=== PATIENT | female | born 1955 ===

== ENCOUNTER → 2023-02-17 | Outpatient (CLI) | payer OTHER ==
[~2023-02-17] MED LIST: GLIMEPIRIDE4 MG; LIPITOR20 MG PO; SYNJARDY 12.5-1 EACH PO; SYNTHROID50 MCG PO; ZESTRIL10 M1 PO
== END | disposition home or self-care (01) ==
LOC: LAB 06:00 → ADM 10:15 → EDSTATUS 02-23 10:15 → CIR.AMB 02-23 10:15
PROVIDERS: ATTEND Surgery
DX: I10 Essential (primary) hypertension (principal)

== ENCOUNTER 2023-06-01 05:59 | Day surgery (SDC) | payer OTHER ==
[~2023-06-01] VITALS: Ht 154.9 cm; Wt 45.4 kg
[~2023-06-01 05:59] MED LIST changes: +OMEGA 3 1,0001 EACH PO
[2023-06-01] MEDS ORDERED: METRONIDAZOLE/SODIUM CHLORIDE 500 MG/100 ML PIGGYBACK IV ONE ×2 (07:13→08:00)
[2023-06-01] MEDS ORDERED: HEMOSTATIC MATRIX 1 KIT KIT TOP ONE ×2 (07:13→08:00)
[2023-06-01] MEDS ORDERED: CEFTRIAXONE SODIUM 2,000 MG VIAL ONE (07:13)
[2023-06-01] MEDS ORDERED: DIBUCAINE 15 GM OINT..GM. TUBE ONE (07:13)
[2023-06-01] MEDS ORDERED: LIDOCAINE HCL/EPINEPHRINE 10MG/ML 1% 50ML IJ ONE (07:13)
[2023-06-01] MEDS ORDERED: BUPIVACAINE HCL/PF 0.5% 30ML ML ONE (07:13)
[2023-06-01] MEDS ORDERED: POVIDONE-IODINE 118 ML BOTT TOP ONE ×2 (07:14→08:00)
[2023-06-01] MEDS ORDERED: BUPIVACAINE HCL/PF 0.5% 5MG/ML VIAL IJ ONE (08:00)
[2023-06-01] MEDS ORDERED: CEFTRIAXONE SODIUM 2,000 MG VIAL IV ONE (08:00)
[2023-06-01] MEDS ORDERED: LIDOCAINE HCL/EPINEPHRINE 30 ML ML IJ ONE (08:00)
[2023-06-01] MEDS ORDERED: DIBUCAINE 15 GM OINT..GM. TUBE RECTAL ONE (08:00)
[2023-06-01] MEDS ORDERED: RECTICARE30 GM TOP (08:35)
[2023-06-01] MEDS ORDERED: PERCOCET 5-3251 EACH PO (08:35)
== END 2023-06-01 17:51 | disposition home or self-care (01) ==
LOC: CIR.AMB 05:59
PROVIDERS: ATTEND Surgery
DX: K64.2 Third degree hemorrhoids (principal); K64.8 Other hemorrhoids; I10 Essential (primary) hypertension